=== PATIENT | female | born 1950 | race Caucasian/White ===

== ENCOUNTER 2017-12-18 17:42 | Emergency (ER) | payer BC, MEDICARE ==
[2017-12-18] MEDS ORDERED: Benzocaine/Butamben/Tetracain* SPRAY ONE (19:04)
[2017-12-18 19:26] VITALS: BP 131/78
--- NOTE | 2017-12-19 01:54 | ED ---
Emerald Martinez Julia, scribed for Ilan Kearney MD on 12/18/17 at 1903 . Complex/Multi-Sys Presentation - HPI Summary HPI Summary: This patient is a 67 year old F presenting to [facility] with a chief complaint of a foreign body sensation in her throat after a GI scope procedure two days ago. A few years ago the patient had GI scope due to pain and difficulty swallowing. However after this GI scope she states she now feels a flap in her throat when swallowing or coughing. She states that she can palpate the mass. - History Of Current Complaint Chief Complaint: EDThroatPain Time Seen by Provider: 12/18/17 18:45 Hx Obtained From: Patient Onset/Duration: Lasting Days Timing: Constant Location: Negative Character: Unable To Describe - foriegn body, "flap" Aggravating Factor(s): swallowing, coughing Related History: Other - recent GI scope - Allergies/Home Medications Allergies/Adverse Reactions: Allergies Allergy/AdvReac Type Severity Reaction Status Date / Time No Known Allergies Allergy Verified 12/18/17 17:52 PMH/Surg Hx/FS Hx/Imm Hx GI History: Reports: Hx Hiatal Hernia Musculoskeletal History: Reports: Hx Rheumatoid Arthritis - Cancer History Hx Chemotherapy: No Hx Radiation Therapy: No Infectious Disease History: No Infectious Disease History: Denies: Traveled Outside the [place] in Last 30 Days - Family History Known Family History: Positive: Hypertension - Social History Alcohol Use: Rare Substance Use Type: Reports: None Smoking Status (MU): Never Smoked Tobacco Review of Systems Negative: Fever Positive: Other - forieng body sensation All Other Systems Reviewed And Are Negative: Yes Physical Exam - Summary Physical Exam Summary: Appearance: Well-appearing, Well-nourished, lying in bed comfortably Skin: Warm, dry, no obvious rash Eyes: sclera anicteric, no conjunctiva pallor ENT: mucous membranes moist, pharynx appears normal Neck: Supple, nontender Respiratory: Clear to auscultation, no signs of respiratory distress Cardiovascular: Normal S1, S2. No murmurs. Normal distal pulses in tibial and radial bilaterally. Abdomen: Soft, nontender, normal active bowel sounds present Musculoskeletal: Normal, Strength/ROM Intact Neurological: A&Ox3, awake and alert, mentation is normal, speech is fluent and appropriate Psychiatric: affect is normal, does not appear anxious or depressed Triage Information Reviewed: Yes Vital Signs On Initial Exam: Initial Vitals Temp Pulse Resp BP Pulse Ox 97.7 F 74 16 160/83 99 12/18/17 17:52 12/18/17 17:52 12/18/17 17:52 12/18/17 17:52 12/18/17 17:52 Vital Signs Reviewed: Yes Procedures - Intubation Time of Intubation: 19:25 - endoscopy exam Intubation Method: orotracheal Intubation Complications: no complications Progress/Xray Impression: No debris, cords normal , aryepiglottic folds are slightly swollen Diagnostics - Vital Signs Vital Signs Temp Pulse Resp BP Pulse Ox 12/18/17 18:25 76 142/73 97 12/18/17 17:52 97.7 F 74 16 160/83 99 - Laboratory Lab Statement: Any lab studies that have been ordered have been reviewed, and results considered in the medical decision making process. Complex Multi-Symp Course/Dx - Diagnoses Provider Diagnoses: Dysphagia Discharge - Sign-Out/Discharge Documenting (check all that apply): Discharge/Admit/Transfer - Discharge Plan Condition: Good Disposition: HOME Prescriptions: Lidocaine 2% VISCOUS* [Xylocaine 2% Viscous*] 15 ml SWISH SWAL Q6H PRN #1 btl PRN Reason: foreign body sensation Referrals: Nita Mcbride MD [Primary Care Provider] - Additional Instructions: I suspect you have a small abrasion on or about the epiglottis that is causing the foreign body flap sensation. I got a good view of all the relevant anatomy in the area with the scope and it all looks normal except for some very mild swelling about the vocal cords. If I am correct this should heal over the next few days. If not, check with your audio visual secretary. - Billing Disposition and Condition Condition: GOOD Disposition: HOME The documentation as recorded by the Emerald nelson Julia accurately reflects the service I personally performed and the decisions made by me, Ilan Kearney MD.
== END 2017-12-18 19:40 | disposition home or self-care (01) ==
LOC: ED 17:42
DX: R47.02 Dysphasia (principal)
CPT/HCPCS: 99282; A9270-GY

== ENCOUNTER 2020-08-07 07:30 | Observation (INO) ==
[2020-08-28] MEDS ORDERED: Lactated Ringers 1000 ml BAG 1,000 ML IV SCH (06:00)
[2020-08-28] MEDS ORDERED: Sodium Citrate/Citric Acid LIQ 15 ML UDC PO ONE (06:00)
[2020-08-28] MEDS ORDERED: Buffered Lidocaine 1% SYRIN 1 ml INTRADERM ONE ×2 (06:00→09:41)
[2020-08-28] MEDS ORDERED: Sodium Citrate/Citric Acid LIQ 15 ML UDC ONE (09:40)
[2020-08-28] MEDS ORDERED: ceFAZolin 2 GM PREMIX 2 GM/50 ML BAG ONE (09:41)
[2020-08-28] MEDS ORDERED: Dexamethasone IV 4 MG/ML VIAL 1 ml VIAL ONE (10:19)
[2020-08-28] MEDS ORDERED: Midazolam 5 mg/5 ml VIAL 1 mg/ml 5 ml VIAL (5 mg) ONE (10:19)
[2020-08-28] MEDS ORDERED: Propofol 10 MG/ML 20 ML BTL ONE (10:25)
[2020-08-28] MEDS ORDERED: Ondansetron 4 mg VIAL 2 MG/ML 2 ml VIAL ONE (10:25)
[2020-08-28] MEDS ORDERED: ROPIVACAINE 5 MG/ML 30 ML BTL (0.5%) ONE (11:16)
[2020-08-28] MEDS ORDERED: Lidocaine 1% MPF 5 ML VIAL ONE (11:16)
[2020-08-28] MEDS ORDERED: Ketamine HCL 50 mg/ml 10 ml VIAL (500 MG) ONE (13:21)
[2020-08-28] MEDS ORDERED: Glycopyrrolate IV 0.2 MG/ML 1 ML VIAL ONE ×2 (13:43→14:32)
[2020-08-28] MEDS ORDERED: fentaNYL 100 mcg/2 ml 50 MCG/ML VIAL ONE (14:08)
[2020-08-28] MEDS ORDERED: Magnesium Hydroxide LIQ 30 ML UDC PO PRN (14:11)
[2020-08-28] MEDS ORDERED: Ondansetron 4 mg VIAL 2 MG/ML 2 ml VIAL IV PRN ×2 (14:11→14:31)
[2020-08-28] MEDS ORDERED: diPHENhydraMINE 25 mg TAB PO PRN (14:11)
[2020-08-28] MEDS ORDERED: Lactulose 30 ml UDC PO PRN (14:11)
[2020-08-28] MEDS ORDERED: Morphine 2 MG/ML SYRINGE IV PRN (14:11)
[2020-08-28] MEDS ORDERED: oxyCODONE/Acetamin 5/325 mg TAB PO PRN (14:11)
[2020-08-28] MEDS ORDERED: Ondansetron ODT 4 mg TAB 4 MG TAB PO PRN (14:11)
[2020-08-28] MEDS ORDERED: diPHENhydraMINE IV 50 MG/ML 1 ml VIAL (BENADRYL) IV PRN (14:11)
[2020-08-28] MEDS ORDERED: fentaNYL 100 mcg/2 ml 50 MCG/ML VIAL IV PRN (14:31)
[2020-08-28] MEDS ORDERED: Naloxone 0.4 mg VIAL 0.4 mg/ml 1 ml VIAL IV PRN (14:31)
[2020-08-28] MEDS: Lactated Ringers 1000 ml BAG 1,000 ML IV SCH (16:45)
[2020-08-29] MEDS: Magnesium Hydroxide LIQ 30 ML UDC PO SCH ×2 (00:05→09:53)
[2020-08-29] MEDS: ceFAZolin 1 GM ADVAN 1 GM in NS 0.9% 50 ML 50 ML IVPB SCH ×3 (00:05→12:49)
[2020-08-29] MEDS: Lactated Ringers 1000 ml BAG 1,000 ML IV SCH (05:29)
[2020-08-29 05:51] LABS: Hematocrit 36 % (35-47); Mean Platelet Volume 8.3 fL (7.4-10.4); Platelet Count 328 10^3/uL (150-450)
[2020-08-29 06:07] LABS: BUN/Creatinine Ratio 20.9 (8-20); Calcium 8.7 mg/dL (8.6-10.3); EGFR African American 74.6 (>60); EGFR Non-African American 61.7 (>60); Potassium 3.9 mmol/L (3.5-5.0)
[2020-08-29] MEDS ORDERED: Vitamin THERAPEUTIC TAB PO SCH (09:00)
[2020-08-29] MEDS ORDERED: NS 0.9% 1000 ml BAG 500 ML IV ONE (11:28)
[2020-08-29 15:05] VITALS: BP 104/52
== END 2020-08-29 16:13 | disposition home or self-care (01) ==
LOC: AA 08-28 10:12 → INTOOBSV 08-28 10:12 → SSU 08-28 16:45
PROVIDERS: ADMIT Orthopaedic Surgery Adult Reconstructive Orthopaedic Surgery; ATTEND Orthopaedic Surgery Adult Reconstructive Orthopaedic Surgery